=== PATIENT | female | born 1975 | race Caucasian/White ===

== ENCOUNTER → 2023-09-26 15:03 | Outpatient (REF) | payer BC, SELFPAY | LOC: RAD 15:03 | PROVIDERS: ATTENDING PHYSICIAN Obstetrics & Gynecology | DX: R10.2 Pelvic and perineal pain (principal) | CPT/HCPCS: 76830; 76856 ==

== ENCOUNTER → 2024-02-02 06:45 | Outpatient (REF) | payer BC, SELFPAY ==
[2024-02-02 08:35] LABS: Potassium 4.2 mmol/L (3.5-5.1)
== END ==
LOC: REG 06:45
PROVIDERS: ATTENDING PHYSICIAN Family Medicine
DX: E87.6 Hypokalemia (principal)
CPT/HCPCS: 36415; 84132

== ENCOUNTER → 2024-02-06 15:54 | Outpatient (REF) | payer BC, SELFPAY | LOC: CLAB 15:54 | PROVIDERS: ATTENDING PHYSICIAN Surgery | DX: L72.0 Epidermal cyst (principal) | CPT/HCPCS: 88304 ==

== ENCOUNTER → 2024-03-25 15:02 | Outpatient (REF) | payer BC, SELFPAY | LOC: WDC 15:02 | PROVIDERS: ATTENDING PHYSICIAN Obstetrics & Gynecology; FAMILY PHYSICIAN Family Medicine | DX: Z12.31 Encounter for screening mammogram for malignant neoplasm of breast (principal) | CPT/HCPCS: 77063; 77067 ==

== ENCOUNTER → 2024-06-05 13:55 | Outpatient (REF) | payer BC, SELFPAY ==
[2024-06-05 17:24] LABS: Urine Albumin Negative (Neg - Trace); Urine Bilirubin Negative (Negative); Urine Character Clear (Clear); Urine Color Yellow; Urine Glucose Negative (Negative); Urine Ketone Negative (Negative); Urine Leukocyte Negative (Negative); Urine Nitrite Negative (Negative); Urine Occult Blood Negative (Negative); Urine Urobilinogen Negative (Neg - 1+); Urine pH 6.5 (5.0-9.0)
[2024-06-05 17:26] LABS: % Basophils 0.7 % (0-2); % Eosinophils 2.2 % (0-6); % Immature Granulocytes 0.4 % (0-0.5); % Lymphocytes 24.8 % (20.5-51.1); % Monocytes 5.7 % (1.7-9.3); % Neutrophils 66.2 % (42.2-75.2); Absolute Basophils 0.1 10^3/uL (0-0.2); Absolute Eosinophils 0.2 10^3/uL (0-0.7); Absolute Monocytes 0.5 10^3/uL (0.1-0.6); Absolute Neutrophils 5.3 10^3/uL (1.4-6.5); Hematocrit 42.9 % (37.0-47.0); Hemoglobin 14.3 g/dL (12.0-16.0); Mean Corp Hgb Conc. 33.3 g/dL (33.0-37.0); Mean Corpuscular Hgb 28.9 pg (27.0-31.0); Mean Corpuscular Volume 86.8 fL (81.0-99.0); Mean Platelet Volume 9.8 fL (7.4-10.4); Nucleated Red Blood Cells % 0 %; Platelet Count 307 10^3/uL (130-400); Red Blood Cell Count 4.94 10^6/uL (4.20-5.40); Red Cell Dist. Width 13.9 % (11.5-14.5)
[2024-06-05 17:30] LABS: ALT (SGPT) 16 U/L (0-35); AST (SGOT) 28 U/L (14-36); Albumin 4.4 g/dl (3.5-5.0); Alkaline Phosphatase 68 U/L (38-126); Blood Urea Nitrogen 9 mg/dl (7-17); Calcium 9.5 mg/dl (8.4-10.2); Carbon Dioxide 28 mmol/L (22-30); Chloride 98 mmol/L (98-107); Glucose 81 mg/dl (70-99); HDL Cholesterol 66 mg/dl; Iron 85 ug/dl (37-170); LDL Cholesterol, Calculated 135 mg/dl; Potassium 3.6 mmol/L (3.5-5.1); Sodium 139 mmol/L (135-145); Total Bilirubin 1.4 mg/dl (0.2-1.3); Total Cholesterol 215 mg/dl (50-199); Total Protein 7.5 g/dl (6.3-8.2); Triglyceride 71 mg/dl (10-149); Very Low Density Lipoprotein 14 mg/dl (0-30); eGFR > 60.00
[2024-06-05 18:01] LABS: TSH 0.85 uIU/ml (0.47-4.68)
[2024-06-05 18:05] LABS: Ferritin 64.4 ng/ml (6.24-137)
[2024-06-05 18:19] LABS: Vitamin B12 985 pg/ml (239-931)
== END ==
LOC: CLAB 13:55
PROVIDERS: ATTENDING PHYSICIAN Family Medicine
DX: Z00.00 Encounter for general adult medical examination without abnormal findings (principal); I10 Essential (primary) hypertension; E78.00 Pure hypercholesterolemia, unspecified; Z86.2 Personal history of diseases of the blood and blood-forming organs and certain disorders involving the immune mechanism; E66.09 Other obesity due to excess calories; Z79.899 Other long term (current) drug therapy
CPT/HCPCS: 36415; 80053; 80061; 81003; 82607; 82728; 83540; 84443; 85025

== ENCOUNTER → 2024-06-18 15:16 | Outpatient (REF) | payer BC, SELFPAY | LOC: RAD 15:16 | PROVIDERS: ATTENDING PHYSICIAN Obstetrics & Gynecology | DX: N83.209 Unspecified ovarian cyst, unspecified side (principal) | CPT/HCPCS: 76830; 76856 ==

== ENCOUNTER → 2024-07-03 06:38 | Day surgery (SDC) | payer BC, SELFPAY | LOC: GI 06:38 | PROVIDERS: ATTENDING PHYSICIAN Internal Medicine Gastroenterology | DX: Z12.11 Encounter for screening for malignant neoplasm of colon (principal); K57.30 Diverticulosis of large intestine without perforation or abscess without bleeding; K64.8 Other hemorrhoids; Z86.0100 Personal history of colon polyps, unspecified | CPT/HCPCS: G0105 ==

== ENCOUNTER → 2025-03-26 13:38 | Outpatient (REF) | payer BC, SELFPAY | LOC: WDC 13:38 | PROVIDERS: ATTENDING PHYSICIAN Obstetrics & Gynecology; FAMILY PHYSICIAN Family Medicine | DX: Z12.31 Encounter for screening mammogram for malignant neoplasm of breast (principal) | CPT/HCPCS: 77063; 77067 ==

== ENCOUNTER 2025-05-06 06:03 | Day surgery (SDC) | payer BC, SELFPAY ==
[2025-04-29 10:33] LABS: Hematocrit 45.5 % (37.0-47.0); Hemoglobin 15.3 g/dL (12.0-16.0); Mean Corp Hgb Conc. 33.6 g/dL (33.0-37.0); Mean Corpuscular Volume 83.8 fL (81.0-99.0); Platelet Count 308 10^3/uL (130-400); Red Cell Dist. Width 13.2 % (11.5-14.5)
[2025-04-29 10:41] LABS: INR 0.93; PT 12.8 Sec (11.4-14.6)
[2025-04-29 10:42] LABS: APTT 28.3 Sec (23.4-35.0)
[2025-04-29 11:13] LABS: ALT (SGPT) 13 U/L (0-35); AST (SGOT) 20 U/L (14-36); Albumin 4.7 g/dl (3.5-5.0); Alkaline Phosphatase 59 U/L (38-126); Blood Urea Nitrogen 15 mg/dl (7-17); Calcium 10.0 mg/dl (8.4-10.2); Carbon Dioxide 29 mmol/L (22-30); Chloride 103 mmol/L (98-107); Glucose 84 mg/dl (70-99); Potassium 4.7 mmol/L (3.5-5.1); Sodium 138 mmol/L (135-145); Total Protein 8.1 g/dl (6.3-8.2); eGFR > 60.00
[2025-04-29 14:14] VITALS: BMI 31.5
[2025-05-06] VITALS (10 sets, daily range): BP systolic 99–173; BP diastolic 60–114; BMI 31.5
[2025-05-06] MEDS: NORMOSOL-R/PLASMALYTE-A 1000 IV (06:52)
[2025-05-06] MEDS: NEURONTIN 300 MG PO (06:52)
[2025-05-06] MEDS: TYLENOL 1000 MG PO (06:52)
[2025-05-06] MEDS: HEPARIN 5000 UNITS SC (06:54)
--- NOTE | 2025-05-06 08:23 | OR.RPT ---
Operative Report
Operative Report
Date of Operation: May 06, 2025
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
Postoperative Diagnosis: Same
Surgeon: Willis Yusuf M.D.
Operation: Resection of the neck soft tissue tumor - 81319 (4 cm)
Anesthesia: Local with IV sedation
Estimated Blood Loss: Minimal
Drains: None
Specimen: Neck soft tissue tumor
Complications: None
Procedure:
The patient was taken to the operating room and placed in the usual supine position. After adequate IV sedation was obtained, the patient's neck was prepped and draped in the usual sterile fashion. The area around the tumor was injected with 1%
lidocaine. An incision was made over the area with a #15 blade. The subcutaneous tissue and the underlying platysmal muscle were divided with electrocautery. The tumor, measuring 4 cm, was identified, carefully resected, and sent for pathology
evaluation.
After obtaining adequate hemostasis, the incision was closed in multiple layers. The fascia was reapproximated with #2-0 Vicryl in an interrupted fashion. The subcutaneous tissue was approximated with #3-0 Vicryl interrupted fashion. The skin was
approximated with #4-0 Monocryl in a running subcuticular fashion.
The Steri-Strips and sterile dressings were applied to the incisions. The patient tolerated the procedure well. The final instrument, needle, and sponge counts were correct. The patient was transferred to the recovery room.
== END 2025-05-06 09:25 | disposition home or self-care (01) ==
LOC: SDS 06:03
PROVIDERS: ATTENDING PHYSICIAN Surgery; FAMILY PHYSICIAN Family Medicine
DX: D17.0 Benign lipomatous neoplasm of skin and subcutaneous tissue of head, face and neck (principal)
CPT/HCPCS: 21556; 36415; 80053; 85027; 85610; 85730; 88304; 93005

== ENCOUNTER 2025-07-03 06:23 | Day surgery (SDC) | payer BC, SELFPAY | END 2025-07-03 11:34 | disposition home or self-care (01) | LOC: GI 06:23 | PROVIDERS: ATTENDING PHYSICIAN Internal Medicine Gastroenterology | DX: K22.89 Other specified disease of esophagus (principal); K31.A19 Gastric intestinal metaplasia without dysplasia, unspecified site; K44.9 Diaphragmatic hernia without obstruction or gangrene; K31.7 Polyp of stomach and duodenum; Z87.19 Personal history of other diseases of the digestive system | CPT/HCPCS: 43239; 88305; 88342 ==